=== PATIENT | female | born 1970 | race Caucasian/White ===

== ENCOUNTER 2022-11-12 20:17 | Observation (INO) ==
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
[2022-11-12 21:05] LABS: BILIRUBIN,URINE NEGATIVE (NEGATIVE); BLOOD/HEMOGLOBIN,URINE NEGATIVE (NEGATIVE); GLUCOSE, URINE NEGATIVE (NEGATIVE); KETONES,URINE NEGATIVE (NEGATIVE); LEUKOCYTE ESTERASE ,URINE NEGATIVE (NEGATIVE); NITRITES,URINE NEGATIVE (NEGATIVE); PROTEIN,URINE NEGATIVE (NEGATIVE); UROBILINOGEN,URINE NORMAL (NORMAL)
--- NOTE | 2022-11-12 21:07 | EKG ---
Test Reason : AMS Blood Pressure : */* mmHG Vent. Rate : 62 BPM Atrial Rate : 62 BPM P-R Int : 150 ms QRS Dur : 72 ms QT Int : 402 ms P-R-T Axes : 11 33 34 degrees QTc Int : 408 ms Normal sinus rhythm Low voltage QRS Septal infarct , age undetermined Abnormal ECG No previous ECGs available Confirmed by Heriberto Castillo ([id number]) on 11/15/2022 10:25:18 AM Referred By: Confirmed By: Heriberto Castillo
[2022-11-12 21:17] LABS: APPEARANCE,URINE CLEAR (CLEAR); COLOR,URINE PALE YELLOW (YELLOW)
--- NOTE | 2022-11-12 21:18 | CT ---
EXAM: HEAD CT WITHOUT INTRAVENOUS CONTRASTHISTORY: Altered mental status. "Moving mouth and fingers in a weird way."TECHNIQUE: Spiral axial CT images are obtained through the brain without the administration of intravenous contrast. Sagittal and coronal reformatted images are reconstructed.DOSIMETRY: Total DLP 817.54 mGycm; CTDI 48 mGyCOMPARISON: None available.FINDINGS:The centrum semiovale, basal ganglia, cerebellum, and brainstem are grossly unremarkable for a noncontrast CT scan. Nonspecific pineal gland calcification is seen.There is no acute intracranial hemorrhage, discernible acute infarction, mass lesion, midline shift, or hydrocephalus seen. No extra-axial mass or abnormal fluid collection is seen.The calvarium is intact. The partially imaged paranasal sinuses, middle ear cavities, and mastoid air cells are clear.IMPRESSION:1. No intracranial hemorrhage, discernible acute infarction, mass lesions, midline shift, mass effect or hydrocephalus seen.2. Consider followup evaluation with MRI /MRA imaging for further assessment as clinically warranted.Electronically signed by: Eugenie Lim (November 12, 2022 21:06:50)
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
[2022-11-12 21:45] LABS: BASOPHILS % (AUTO) 0.6 % (0.2-1.0); EOSINOPHILS # (AUTO) 0.1 x10^3/uL (0.0-0.2); EOSINOPHILS % (AUTO) 1.5 % (0.9-2.9); LYMPHOCYTES % (AUTO) 29.8 % (21.0-51.0); MEAN CORPUSCULAR HEMOGLOBIN 30.1 pg (27.0-34.0); MEAN CORPUSCULAR HGB CONC 34.2 g/dL (33.0-35.0); MEAN CORPUSCULAR VOLUME 88.1 fL (80.0-100.0); MEAN PLATELET VOLUME 8.3 fL (7.4-11.0); MONOCYTES # (AUTO) 0.3 x10^3/uL (0.3-0.8); MONOCYTES % (AUTO) 5.2 % (0.0-13.0); NEUTROPHILS # (AUTO) 4.2 x10^3/uL (2.2-4.8); NEUTROPHILS % (AUTO) 62.9 % (42.0-75.0); PLATELET COUNT 205 X10^3/uL (150.0-450.0); RED BLOOD COUNT 4.65 X10^6/uL (3.5-5.4); RED CELL DISTRIBUTION WIDTH 13.4 % (11.6-16.5); WHITE BLOOD COUNT 6.7 X10^3/uL (3.6-10.0)
[2022-11-12 21:50] LABS: INR 0.99 (0.8-1.3)
[2022-11-12] MEDS ORDERED: NS 1,000 ML IV 1,000 ML IV ONE ×2 (21:53→22:11)
[2022-11-12] MEDS: NS 1,000 ML IV 1,000 ML IV SCH ×2 (21:54→22:10)
[2022-11-12] MEDS ORDERED: NS 1,000 ML IV 1,000 ML ONE (21:54)
[2022-11-12 21:57] LABS: ALANINE AMINOTRANSFERASE 23 Units/L (12-78); ALBUMIN 3.9 g/dL (3.4-5.0); ALKALINE PHOSPHATASE 59 Units/L (46-116); ASPARTATE AMINO TRANSFERASE 18 Units/L (15-37); BLOOD UREA NITROGEN 8 mg/dL (7-18); CALCIUM 8.6 mg/dL (8.5-10.1); CARBON DIOXIDE 27.4 mmol/L (21-32); CHLORIDE 105 mmol/L (98-107); CHOL/HDL RATIO 3.2 (0.0-5.0); CHOLESTEROL 210 mg/dL (0-200); CREATINE KINASE 56 Units/L (26-192); CREATININE 0.82 mg/dL (0.55-1.02); GLUCOSE 90 mg/dL (65-99); HDL CHOLESTEROL 65 mg/dL (40-60); POTASSIUM 3.8 mmol/L (3.5-5.1); SODIUM 141 mmol/L (136-145); TOTAL PROTEIN 7.3 g/dL (6.4-8.2); TRIGLYCERIDES 55 mg/dL (0-150); eGFR NON BLACK RACES > 60 (>60)
--- NOTE | 2022-11-12 22:07 | RAD ---
HISTORYNAD noted, pt's siser reports at approx 1845 pt was [address] and had an episode of AMS not knowing where she was or who she was, states pt was moving mouth and fingers in "weird" way Relevant Clinical InformationSTUDYCHEST, 1 VIEWCOMPARISONFrontal chest radiograph September 18, 2021FINDINGSMidline trachea. Stable heart size. The lungs are grossly clear and well inflated.IMPRESSIONNothing acuteElectronically signed by: Hernandez Call (November 12, 2022 22:05:18)
[2022-11-12 23:46] VITALS: BMI 41.8
[2022-11-13 06:17] LABS: BASOPHILS % (AUTO) 0.5 % (0.2-1.0); EOSINOPHILS # (AUTO) 0.1 x10^3/uL (0.0-0.2); HEMOGLOBIN 12.8 g/dL (12.0-16.0); LYMPHOCYTES # (AUTO) 2.7 X10^3/uL (1.3-2.9); MEAN CORPUSCULAR HEMOGLOBIN 30.4 pg (27.0-34.0); MEAN CORPUSCULAR HGB CONC 34.7 g/dL (33.0-35.0); MEAN CORPUSCULAR VOLUME 87.4 fL (80.0-100.0); MEAN PLATELET VOLUME 8.3 fL (7.4-11.0); MONOCYTES # (AUTO) 0.4 x10^3/uL (0.3-0.8); MONOCYTES % (AUTO) 6.3 % (0.0-13.0); NEUTROPHILS # (AUTO) 2.9 x10^3/uL (2.2-4.8); NEUTROPHILS % (AUTO) 47.2 % (42.0-75.0); PLATELET COUNT 172 X10^3/uL (150.0-450.0); RED BLOOD COUNT 4.23 X10^6/uL (3.5-5.4); RED CELL DISTRIBUTION WIDTH 13.5 % (11.6-16.5); WHITE BLOOD COUNT 6.2 X10^3/uL (3.6-10.0)
[2022-11-13 06:19] LABS: ALANINE AMINOTRANSFERASE 18 Units/L (12-78); ALBUMIN 3.2 g/dL (3.4-5.0); ALKALINE PHOSPHATASE 50 Units/L (46-116); ASPARTATE AMINO TRANSFERASE 15 Units/L (15-37); BLOOD UREA NITROGEN 6 mg/dL (7-18); CALCIUM 8.3 mg/dL (8.5-10.1); CARBON DIOXIDE 26.6 mmol/L (21-32); CHLORIDE 109 mmol/L (98-107); COR CA(FOR HYPOALB) 8.9 mg/dL (8.5-10.1); CREATININE 0.66 mg/dL (0.55-1.02); GLUCOSE 74 mg/dL (65-99); POTASSIUM 3.5 mmol/L (3.5-5.1); SODIUM 142 mmol/L (136-145); TOTAL PROTEIN 6.2 g/dL (6.4-8.2); eGFR NON BLACK RACES > 60 (>60)
[2022-11-13] MEDS ORDERED: VORTIOXETINE 5 MG PO SCH (09:00)
--- NOTE | 2022-11-13 09:12 | EKG ---
Test Reason : ams Blood Pressure : */* mmHG Vent. Rate : 52 BPM Atrial Rate : 52 BPM P-R Int : 174 ms QRS Dur : 78 ms QT Int : 448 ms P-R-T Axes : 15 39 39 degrees QTc Int : 416 ms Sinus bradycardia Low voltage QRS Borderline ECG When compared with ECG of 12-NOV-2022 21:05, (Unconfirmed) Criteria for Septal infarct are no longer present Confirmed by Heriberto Castillo ([id number]) on 11/15/2022 10:24:58 AM Referred By: Confirmed By: Heriberto Castillo
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
[2022-11-13] MEDS: VALIUM PO PRN ×2 (11:04→20:22)
--- NOTE | 2022-11-13 12:54 | MRI ---
HISTORYAMS, DISORIENTATIONSTUDYBRAIN W W/O CONCOMPARISONCT head from 1 day prior.TECHNIQUEMultiplanar multi-sequence MRI of the brain was obtained utilizing standard departmental protocol. Sagittal and axial T1 weighted images were obtained. Axial T2 and flair weighted images were performed as well. Axial diffusion weighted and ADC trace mapping was performed.FINDINGSMild motion artifact of the sagittal T1 sequence.Diffusion imaging: [Normal, no acute infarct.]Susceptibility weighted imaging: [No abnormal susceptibility artifact.]Brain volume: [Appropriate for age.]Ventricles and basal cisterns: FLAIR bright signal in the basilar cisterns and 4th ventricle is nonspecific but often due to technical artifact. No abnormal signal in these locations on other pulse sequences. No hydrocephalus. Asymmetrically larger right lateral ventricle is a commonly seen anatomic variant.Extra-axial spaces: [No extra-axial collection.]Cerebral parynchema: [No mass, hematoma, or mass effect.] No significant T2 or FLAIR white matter hyperintensity.Pituitary and other sagittal midline structures: [Normal.]Visualized orbits: [The aspherical appearancee of the right globe is likely artifactual image 7 series 701.]Paranasal sinuses and mastoid air cells: [Mild mucosal thickening of the ethmoid air cells.]Bones: [Intact.]Other: [No pathologic enhancement postcontrast.]IMPRESSIONNo findings to explain the patient's symptoms. No abnormal restricted diffusion to suggest acute infarct.Electronically signed by: Josiah Medina (November 13, 2022 12:52:51)
--- NOTE | 2022-11-13 13:01 | VAS ---
HISTORYReason For StudySTUDYCAROTID USCOMPARISONNone availableTECHNIQUEMultiple ravi scale, duplex and color flow Doppler images of the right and left carotid arterial system were obtained. The vertebral arterial system was evaluated as well.FINDINGSNonocclusive color flow Doppler is seen throughout the right and left carotid arterial system.There is [moderate] atherosclerotic plaque formation of the bilateral carotid bulbs and proximal ICA's .The right and left vertebral artery demonstrate antegrade flow.There is normal flow velocities and duplex waveforms within the right and left external carotid arteries.Peak right CCA velocity: [90] centimeter/seconds.Peak right ICA velocity: [82] centimeter/seconds.Right ICA to CCA ratio: [1.0].Peak left CCA velocity: [85] centimeter/seconds.Peak left ICA velocity: [79] centimeter/seconds.Left ICA to CCA ratio: [1.0].IMPRESSIONBased on peak systolic velocities and ICA to CCA ratios there is [no hemodynamically significant stenosis].Electronically signed by: GIDEON SWAN (November 13, 2022 12:59:41)
[2022-11-13 13:37] LABS: FREE T4 (FREE THYROXINE) 1.16 ng/dL (0.76-1.46); TSH (3RD GENERATION) 2.754 uIU/mL (0.358-3.74)
--- NOTE | 2022-11-13 16:11 | CT ---
HISTORYELEV D DIMER, AMSSTUDYCTA CHESTCOMPARISONNone availableTECHNIQUEMultiple axial images of the chest were obtained from the thoracic inlet to the upper abdomen after the administration of IV contrast. 3D reconstructions utilizing axial MIPS imaging was performed and reviewed. Dose reduction techniques including Automated Exposure Control (AEC) and adjustment of mA and kV were utilized.FINDINGS[The central pulmonary arterial system does not demonstrate central filling defects to suggest pulmonary emboli.]The mediastinum does not demonstrate significant pathological lymphadenopathy. There is no pericardial effusion observed. The thoracic aorta is normal in its contour without evidence for aneurysmal dilatation.There is moderate air trapping throughout both lungs. There is mild subsegmental atelectasis within inferior right middle lobe. Lung bases demonstrate mild subsegmental atelectasis. No significant pleural effusion.The bony thorax is unremarkable in its appearance . The visualized portions of the upper abdomen are grossly unremarkable. Previous gastric sleeve procedure is noted. Bilateral renal cystIMPRESSIONNo PTE.Moderate air trapping throughout both lungs, clinical correlation is needed as is can be seen in setting of a chronic infectious or inflammatory bronchiolitis or obliterative bronchiolitis.Incidental, nonacute findings as described above.Electronically signed by: GIDEON SWAN (November 13, 2022 16:10:38)
--- NOTE | 2022-11-13 18:40 | EKG ---
Test Reason : AMS Blood Pressure : */* mmHG Vent. Rate : 78 BPM Atrial Rate : 78 BPM P-R Int : 170 ms QRS Dur : 74 ms QT Int : 374 ms P-R-T Axes : 64 45 61 degrees QTc Int : 426 ms Normal sinus rhythm with sinus arrhythmia Low voltage QRS Septal infarct , age undetermined Abnormal ECG When compared with ECG of 13-NOV-2022 08:50, (Unconfirmed) Vent. rate has increased BY 26 BPM Septal infarct is now present Confirmed by Heriberto Castillo ([id number]) on 11/15/2022 10:20:05 AM Referred By: Confirmed By: Heriberto Castillo
[2022-11-13 19:23] LABS: CREATINE KINASE 50 Units/L (26-192)
[2022-11-13] MEDS: DEPAKOTE D.R. TAB PO SCH (20:23)
[2022-11-14 04:05] VITALS: BP 119/58
[2022-11-14 05:18] LABS: BASOPHILS # (AUTO) 0.2 X10^3/uL (0.0-0.1); BASOPHILS % (AUTO) 3.1 % (0.2-1.0); EOSINOPHILS # (AUTO) 0.2 x10^3/uL (0.0-0.2); EOSINOPHILS % (AUTO) 3.6 % (0.9-2.9); HEMATOCRIT 38.7 % (36.0-47.0); HEMOGLOBIN 13.3 g/dL (12.0-16.0); LYMPHOCYTES # (AUTO) 2.2 X10^3/uL (1.3-2.9); LYMPHOCYTES % (AUTO) 36.2 % (21.0-51.0); MEAN CORPUSCULAR HEMOGLOBIN 30.1 pg (27.0-34.0); MEAN CORPUSCULAR HGB CONC 34.4 g/dL (33.0-35.0); MEAN CORPUSCULAR VOLUME 87.5 fL (80.0-100.0); MEAN PLATELET VOLUME 8.1 fL (7.4-11.0); MONOCYTES # (AUTO) 0.4 x10^3/uL (0.3-0.8); MONOCYTES % (AUTO) 5.8 % (0.0-13.0); NEUTROPHILS # (AUTO) 3.1 x10^3/uL (2.2-4.8); NEUTROPHILS % (AUTO) 51.3 % (42.0-75.0); PLATELET COUNT 177 X10^3/uL (150.0-450.0); RED BLOOD COUNT 4.42 X10^6/uL (3.5-5.4); RED CELL DISTRIBUTION WIDTH 13.3 % (11.6-16.5); WHITE BLOOD COUNT 6.1 X10^3/uL (3.6-10.0)
[2022-11-14 05:31] LABS: ALANINE AMINOTRANSFERASE 19 Units/L (12-78); ALBUMIN 3.2 g/dL (3.4-5.0); ALKALINE PHOSPHATASE 52 Units/L (46-116); ASPARTATE AMINO TRANSFERASE 15 Units/L (15-37); BLOOD UREA NITROGEN 6 mg/dL (7-18); CALCIUM 8.2 mg/dL (8.5-10.1); CHLORIDE 104 mmol/L (98-107); COR CA(FOR HYPOALB) 8.8 mg/dL (8.5-10.1); CREATININE 0.71 mg/dL (0.55-1.02); GLUCOSE 75 mg/dL (65-99); POTASSIUM 3.4 mmol/L (3.5-5.1); SODIUM 139 mmol/L (136-145); TOTAL PROTEIN 6.4 g/dL (6.4-8.2); eGFR NON BLACK RACES > 60 (>60)
[2022-11-14] MEDS ORDERED: MICRO K EXTEN CAP 10 MEQ PO PRN (06:12)
[2022-11-14] MEDS ORDERED: MAGNESIUM SULFATE 1 GRAM/100 mL PREMIX 1 G/100 ML BAG IV PRN (06:12)
[2022-11-14] MEDS ORDERED: POTASSIUM CHL 60 MEQ/NS 0.45% 500 ML IV PRN (06:12)
[2022-11-14] MEDS ORDERED: KLOR-CON PO PRN (06:12)
[2022-11-14] MEDS ORDERED: K-DUR TAB 20 MEQ PO PRN (06:12)
[2022-11-14] MEDS ORDERED: POTASSIUM CHL 40 MEQ/NS 0.45% 500 ML IV PRN (06:12)
[2022-11-14] MEDS ORDERED: POTASSIUM CHLORIDE LIQ 20 MEQ UDC PO PRN (06:12)
[2022-11-14] MEDS ORDERED: K-RIDER 10 MEQ/NS 100 ML 10 MEQ/100 ML BAG IV PRN (06:12)
[2022-11-14] MEDS: DEPAKOTE D.R. TAB PO SCH (08:02)
== END 2022-11-14 11:05 | disposition home or self-care (01) ==
LOC: ER 20:17 → ICU 20:17
PROVIDERS: ADMIT Internal Medicine; ATTEND Internal Medicine
DX: R00.1 Bradycardia, unspecified; R79.1 Abnormal coagulation profile; R41.82 Altered mental status, unspecified; F41.8 Other specified anxiety disorders; R41.0 Disorientation, unspecified; R94.31 Abnormal electrocardiogram [ECG] [EKG]